=== PATIENT | male | born 1975 | race Caucasian/White ===

== ENCOUNTER 2023-07-31 06:42 | Day surgery (SDC) | payer OTHER ==
[~2023-07-31] VITALS: Ht 162.6 cm; Wt 81.6 kg
[2023-07-31] MEDS ORDERED: fentaNYL citrate 0.05 MG/ML VIAL ONE (07:37)
[2023-07-31] MEDS ORDERED: MIDAZOLAM 2 MG/2 ML VIAL ONE (07:38)
[2023-07-31] MEDS: MIDAZOLAM 2 MG/2 ML VIAL IVP ONE (07:45)
[2023-07-31] MEDS: fentaNYL citrate 0.05 MG/ML VIAL IVP ONE (07:46)
[2023-07-31] MEDS: LIDOCAINE 2% 100 MG/5 ML UJET TP ONE (08:00)
== END 2023-07-31 09:15 | disposition home or self-care (01) ==
LOC: MMU 06:42 → MOR 06:42
PROVIDERS: ATTEND Internal Medicine Gastroenterology
DX: K62.5 Hemorrhage of anus and rectum (principal); R11.2 Nausea with vomiting, unspecified; K64.8 Other hemorrhoids; K63.5 Polyp of colon; R14.0 Abdominal distension (gaseous); E78.00 Pure hypercholesterolemia, unspecified; Z90.89 Acquired absence of other organs; Z79.899 Other long term (current) drug therapy; Z98.890 Other specified postprocedural states
CPT/HCPCS: 36415; 43239; 45385; 86677; J2250; J3010